=== PATIENT | male | born 1960 | race Caucasian/White ===

== ENCOUNTER 2025-07-16 08:40 | Outpatient (CLI) | payer MEDICARE ==
[2025-07-16 09:13] LABS: Estimated GFR - POC 83.0
== END 2025-07-16 08:41 | disposition home or self-care (01) ==
LOC: CSHMRI 08:40
PROVIDERS: ATTEND Family Medicine
DX: K76.89 Other specified diseases of liver (principal); K86.89 Other specified diseases of pancreas
CPT/HCPCS: 74183; 82565